=== PATIENT | male | born 1945 | race Caucasian/White ===

== ENCOUNTER 2023-11-14 06:21 | Day surgery (SDC) | payer OTHER, SELFPAY ==
[2023-11-14] MEDS: PRED FORTE 1% EYE DROPS 1 DROP OPHTH (06:30)
[2023-11-14] MEDS: ALCAINE 0.5% EYE DROPS 2 DROP OPHTH (06:30)
[2023-11-14] MEDS: POLYTRIM OPHTHALMIC SOLUTION 1 DROP OPHTH (06:31)
[2023-11-14] MEDS: NEO-SYNEPHRINE 2.5% OPH SOL. 1 DROP OPHTH (06:31)
[2023-11-14 06:32] VITALS: BMI 29.2
[2023-11-14] MEDS: MYDRIACYL 1 DROP OPHTH (06:32)
[2023-11-14] MEDS: CYCLOGYL 1% EYE DROPS 1 DROP OPHTH (06:32)
[2023-11-14] MEDS: ACUVAIL 3 DROPS OPHTH (06:33)
[2023-11-14] MEDS: AKTEN OPHTHALMIC GEL 1 ML OPHTH (06:33)
[2023-11-14 06:34] VITALS: BP 181/101; BMI 29.2
[2023-11-14] MEDS: NORMOSOL-R 1000 IV (06:45)
[2023-11-14 07:46] VITALS: BP 151/65
== END 2023-11-14 08:15 | disposition home or self-care (01) ==
LOC: SDS 06:21
PROVIDERS: ATTENDING PHYSICIAN Ophthalmology
DX: H25.812 Combined forms of age-related cataract, left eye (principal)
CPT/HCPCS: 66984; V2632